=== PATIENT | male | born 1980 | race Caucasian/White ===

== ENCOUNTER 2023-04-09 14:49 | Emergency (ER) | payer OTHER, SELFPAY ==
[2023-04-09 15:12] VITALS: BP 154/87; PULSE 105; RESP 20; TEMP 37.2; O2SAT 97; BMI 40.6
--- NOTE | 2023-04-09 16:09 | ED_ITS ---
HPI - General Adult General: Chief complaint: General Medical Stated complaint: spider bite Time Seen by Provider: 04/09/23 15:19 History of Present Illness: Patient is a 42-year-old male comes to the ED with swollen tender nodule on right buttock. symptoms started this morning when he woke up. He could feel a tender golf ball sized nodule at the top right buttock. He rates the pain currently a 5 out of 10 in any pressure on area like sitting causes worsening pain. He has never had swelling or pain in this area before. He has had spider bite before that reacted like this. Denies any fevers, nausea/vomiting, bladder or bowel symptoms. Associated symptoms: Deny chest pain, dyspnea, headache(s), nausea, rash, palpitations or vomiting Review of Systems Const: Denies: fever(s), chills or fatigue Eyes: Denies: change in vision or eye discomfort ENMT: Denies: throat pain, odynophagia, nasal discharge or nasal congestion Card: Denies: chest pain, palpitations, edema, swelling of feet/ankles, dyspnea on exertion or orthopnea Resp: Denies: dyspnea, productive cough or non-productive cough GI: Denies: abdominal pain, nausea, vomiting, diarrhea, constipation or hematochezia : Denies: flank pain, difficulty urinating, dysuria or hematuria Musc: Denies: neck pain, back pain or extremity swelling Skin/Breast: Reports: new lesions (Possible abscess on right buttock); Denies: rash Neuro: Denies: headache(s), numbness in extremities or weakness in extremities [facility] ED PFSH: Medical History (Updated 04/09/23 @ 17:32 by NELIDA Sandoval) No pertinent family history Surgical History (Updated 04/09/23 @ 17:03 by NELIDA Sandoval) No pertinent past surgical history Physical Exam Const: COMMON NORMALS: patient oriented x3 HENMT: COMMON NORMALS: normocephalic HEAD & SCALP: normocephalic MOUTH: Normal oral and palatal mucosa present THROAT: posterior oropharynx normal and uvula midline Neck/C-Spine: COMMON NORMALS: supple GENERAL: Yes normal visual inspection Resp: COMMON NORMALS: normal respiratory effort, No retractions, No use of accessory muscles and clear to auscultation bilaterally AUSCULTATION: clear to auscultation bilaterally Cardio: COMMON NORMALS: regular rate, regular rhythm, S1 normal heart sound present, S2 normal heart sound present, No gallops present (Cardio), No clicks present (Cardio), No murmurs present (Cardio) and Peripheral pulses 2+ throughout RATE: regular rate RHYTHM: regular rhythm HEART SOUNDS: S1 normal heart sound present and S2 normal heart sound present PERIPHERAL PULSES: Peripheral pulses 2+ throughout GI: COMMON NORMALS: Normal to inspection, nondistended, normoactive bowel sounds present, Soft to palpation, non-tender and no masses PALPATION: Yes S oft to palpation : COMMON NORMALS: Yes no CVA tenderness BLADDER/KIDNEY EXAM: Yes no CVA tenderness Back/Pelvis: COMMON NORMALS: no CVA tenderness Neuro: COMMON NORMALS: patient oriented x3 GAIT: Yes Normal gait present Skin: NARRATIVE SKIN EXAM: Tender, erythemic, warm swollen nodule at top of right buttock near intergluteal cleft. Fluctuant and nonindurated. Findings suggestive of possible abscess or developing pilonidal cyst. Procedures Abscess I/D Site: back (Right buttock near top of intergluteal cleft) Side (if applicable): right Sedation/analgesia: none Local Anesthetic: lidocaine 1% Amount of anesthesia used (mL): 4 Technique: incised with #11 blade Amount of fluid expressed (mL): 4 (Malodorous purulent drainage) Irrigation: Yes Packing used?: none Course Vital Signs: Vital signs: Vital Signs Temperature 98.9 F 04/09/23 15:12 Pulse Rate 105 H 04/09/23 15:12 Respiratory Rate 20 H 04/09/23 15:12 Blood Pressure 154/87 04/09/23 15:12 Pulse Oximetry 97 04/09/23 15:12 Oxygen Delivery Me thod Room Air 04/09/23 15:12 [facility] - General Adult Medical Decision Making Patient is a 42-year-old male comes to the ED with swollen tender nodule on right buttock. symptoms started this morning when he woke up. He could feel a tender golf ball sized nodule at the top right buttock. He rates the pain currently a 5 out of 10 in any pressure on area like sitting causes worsening pain. He has never had swelling or pain in this area before. He has had spider bite before that reacted like this. Denies any fevers, nausea/vomiting, bladder or bowel symptoms. Vital stable. Exam of patient shows possible abscess or infected pilonidal cyst near the intergluteal cleft on superior aspect of right buttock. Lidocaine 1% was used as local and small incision made with 11 blade to drain abscess. Approximately 4 mL of malodorous purulent drainage was removed. Abscess culture and Gram stain pending. Abscess was irrigated extensor with normal saline and bandage was placed over it. Patient was given a dose of antibiotic here in the ED and was stable for discharge home. I placed an order with case management for patient be referred to general surgery for follow-up on abscess. He was sent home with a prescription for an antibiotic and told to follow-up with his PCP within the next couple days to reevaluate abscess until he sees general surgery. Patient understood and agreed with plan. Discharge Plan Discharge Patient Disposition: Home Clinical Impression: Abscess Condition: Stable Prescriptions: New clindamycin HCl 150 mg capsule 300 mg PO QID 10 Days Qty: 80 0RF Discharge Orders: Discharge ED (Routine); Ordered 04/09/23 Ordered By: Rafal Kim Referrals: Yazmin Cade PA-C [Primary Care Provider] - Discharge Diet: Regular Discharge Activity: Increase activity as tolerated Patient Instructions: Abscess (ED) Activity Restrictions/Additional Instructions: Follow-up with primary care physician in the next 2 to 3 days for reevaluation. Case management regarding in the next several days to set up an appointment with general surgery for follow-up on abscess. Take medications as prescribed. Return to the ER or your medical provider if condition worsens. Please read and understand discharge instructions. Thank you for choosing [facility] for your healthcare needs today. Please realize this is an emergency room and that we are providing you with a medical screening exam and this may not be complete and all inclusive of all the testing and or work up that you may need to determine your ailment or severity of your illness. It is very important that you follow up as instructed or that you return to the Emergency Department should you have concerns or if your condition changes or worsens in any way. Stand Alone Forms: Work/School Release Coding Level of Care Code ED High Value Associate for Kylah Gastelum
[2023-04-09] MEDS: HYDROcodone-acetaminophen 7.5-325 mg Tablet 1 TAB PO (17:19)
[2023-04-09] MEDS: clindamycin 150 mg Capsule 300 MG PO (18:21)
--- NOTE | 2023-04-10 12:18 | PC.NURSE ---
Addendum entered by Mildred Bautista RN 04/20/23 15:16: General Surgery called patient and patient declined appt. Addendum entered by Lindsay Freeman 04/16/23 11:31: Patient has [employer] insurance and is not in network with Dr. Beyer - catalytic case operator called and spoke with patient and his , to confirm where he wanted referral sent. patients stated that she wanted the referral sent to [facility] surgery. case manager faxed patients information to [facility]. case manager called to confirm that clinic received patients information. case manager was told that clinic did get patients information, and that it will be reviewed, and clinic will call patient with appointment information. Original Note: Patient seen in the ED on 04/09/23. Being referred to General surgery for right buttock abcess. [facility] sent message to call patient with an appt.
== END 2023-04-09 18:44 | disposition home or self-care (01) ==
PROVIDERS: Emergency Provider Physician Assistant; PCP Physician Assistant
DX: L02.31 Cutaneous abscess of buttock (principal)
CPT/HCPCS: 10060; 87070; 87075; 87205; 99283

== ENCOUNTER 2023-06-13 11:05 | Emergency (ER) | payer OTHER, MEDICAID, BC, SELFPAY ==
[2023-06-13 11:10] VITALS: BP 146/94; PULSE 96; RESP 16; TEMP 36.8; O2SAT 95; BMI 40.7
--- NOTE | 2023-06-13 11:16 | CTR_ITS ---
PROCEDURE INFORMATION: Exam: CT Abdomen And Pelvis With Contrast Exam date and time: 06/13/2023 12:13 PM Age: 42 years old Clinical indication: Abdominal pain; Epigastric; Additional info: Abd pain.No history of trauma or recent surgery is provided. TECHNIQUE: Imaging protocol: Computed tomography of the abdomen and pelvis with contrast. 245image(s) are provided. Radiation optimization: All CT scans at this facility use at least one of these dose optimization techniques: automated exposure control; mA and/or kV adjustment per patient size (includes targeted exams where dose is matched to clinical indication); or iterative reconstruction. Contrast material: OMNI 350; Contrast volume: 100 ml; Contrast route: INTRAVENOUS (IV); Other technique: Axial images are available with sagittal and coronal reconstruction views. Automated dose exposure control is utilized. The DLP is 1173.80. REPORTING DATA: Count of CT and Cardiac NM exams in prior 12 months: This patient has received 0 known CTs and 0 known cardiac nuclear medicine studies in the 12 months prior to the current study. COMPARISON: US gall bladder [id number] 06/10/2023 11:26 AM with no report currently available. No previous CT is currently available. RADIATION DOSE METRICS: Total DLP (mGy-cm): 1173.8 FINDINGS: Lungs: There is a 2 x 3 mm ground-glass nodular density subpleural right middle lobe series 4, image 5. There is some bandlike subsegmental atelectasis versus postinflammatory scarring most pronounced at the lingula level. No lobar consolidation is appreciated.For patients at low risk (minimal or absent history of smoking and of other known risk factors), no routine follow-up is indicated. For patients at high risk (history of smoking or of other known risk factors), consider optional CT Chest at 12 months. (Reference: Huey) Liver: There is some hepatic steatosis demonstrated overall. Gallbladder and bile ducts: The gallbladder is slightly contracted with some trace sludge appearance. The common bile duct is borderline at approximately 8 mm. No definite radiopaque obstructive calculus is currently appreciated along the expected course.Distal most, ampullary level evaluation is limited. Pancreas: No pancreatic ductal dilatation or calcification is currently appreciated. Spleen: Unremarkable. Adrenal glands: Unremarkable. Kidneys and ureters: There is homogeneous renal parenchymal enhancement with no radiopaque obstructive calculus or hydronephrosis appreciated. Stomach and bowel: Some aspects of the colon are undistended. This may also be peristaltic related.There is abundant stool present limiting mucosal detail evaluation.The bowel gas pattern appears nonobstructive. There is a small sliding-type hiatal hernia demonstrated with slight gastroesophageal fold thickening. There is some minimal chronic appearing diverticulosis. Appendix: There is an unremarkable overall appearance of the appendix demonstrated. Intraperitoneal space: No free air or free fluid collections are appreciated. Vasculature: No abdominal aortic aneurysmal dilatation or periaortic fluid is appreciated. Lymph nodes: There are subcentimeter predominant para-aortic and mesenteric lymph nodes overall present. There are some borderline groin level lymph nodes present. Urinary bladder: The bladder is incompletely fluid filled for evaluation which may exagerate the wall thickness. This can also be seen with post inflammation sequela. Reproductive: Unremarkable as visualized. Bones/joints: Osseous alignment is maintained.No displaced fracture or dislocation is appreciated.No lobar consolidation is appreciated. There is some mild disc space degeneration of the lumbar spine overall. This contributes to some neural foraminal narrowing. Soft tissues: No radiopaque foreign body or subcutaneous emphysema is appreciated. Other findings: There is some motion artifact present. CT/CT abdomen pelvis w con* [id number] IMPRESSION: 1. There is hepatomegaly with diffuse steatosis appearance overall. 2. The gallbladder is slightly contracted with some trace sludge appearance. Consider hepatobiliary profile studies. 3. No fluid collections or acute inflammatory stranding changes are appreciated. REFERENCES: Huey Copeland, et al. Guidelines for Management of Incidental Pulmonary Nodules Detected on CT Images: From the Fleischner Society 2017. Radiology. 2017;284(1):228-243.
--- NOTE | 2023-06-13 11:17 | ED_ITS ---
HPI - Abdominal Pain General: Chief Complaint: Abdominal Pain Stated Complaint: gallbladder issues Time Seen by Provider: 06/13/23 11:16 History of Present Illness: 42-year-old male presents emergency room for complaints of diarrhea and abdominal pain for the past few days. Was initially seen and evaluated at a different hospital few days ago. At [facility] patient had extensive work-up done including trazodone and labs. The ultrasound did show some sludge patient was directly admitted to this hospital. For transportation patient left AGAINST MEDICAL ADVICE. Yesterday patient was seen and evaluated by primary physician and was told to come to the emergency room. She presents emergency room today with vague complaint of diarrhea and abdominal pain after eating. Denies any nausea, vomiting, vomiting blood or coughing up blood. Associated Symptoms: Reports diarrhea and nausea; Denies belching, bloating, change in bowel habits, change in stool character, coffee ground emesis, constipation, GI cramping, excessive flatus, hematochezia, hematemesis, melena and vomiting Review of Systems General: Reports: 10 or more systems reviewed and unremarkable except in HPI and below GI: Reports: abdominal pain, nausea and diarrhea; Denies: vomiting, hematemesis, coffee ground emesis, dysphagia, early satiety, c onstipation, bloating, GI cramping, belching, excessive flatus, change in bowel habits, pain on defecation, rectal itching, change in stool character, hematochezia, melena or mucus in stool [facility] ED PFSH: Medical History No pertinent family history Surgical History No pertinent past surgical history Physical Exam Const: COMMON NORMALS: no acute distress, average body habitus, patient oriented x3, no limitations, healthy appearing, alert and well nourished Chest: COMMONS NORMALS: normal inspection of the chest, normal palpation of entire chest wall, normal inspection of the breasts and normal palpation of the breasts Breast/axilla inspection: Yes normal inspection of the breasts BREAST/AXILLA PALPATION: Yes normal palpation of the breasts Resp: COMMON NORMALS: normal respiratory effort, No retractions, No use of accessory muscles, clear to auscultation bilaterally and percussion normal AUSCULTATION: clear to auscultation bilaterally PERCUSSION: percussion normal GI: COMMON NORMALS: Normal to inspection, nondistended, normoactive bowel sounds present, Soft to palpation, non-tender, No hepatosplenomegaly present, no masses and no bruits PALPATION: Yes Soft to palpation and Yes No hepatosplenomegaly present : COMMON NORMALS: Yes no CVA tenderness BLADDER/KIDNEY EXAM: Yes no CVA tenderness Back/Pelvis: COMMON NORMALS: no CVA tenderness, thoracic and lumbar spine normal to inspection, no thoracic nor lumbar tenderness, thoraco-lumbar ROM normal and straight leg raise negative bilaterally Extremity: COMMON NORMALS: normal to inspection, full ROM, capillary refill normal, no joint enlargement, no clubbing, cyanosis or edema, no calf tenderness and no pedal edema Neuro: COMMON NORMALS: patient oriented x3 SENSORIUM/ORIENTATION: Yes alert Course Consultations: Consultation #1: at 12 20 pm i discussed pt with Dr montiel. i told him about the us findings and labs including the WBC . he recommended discharge with oral antibiotic and outpatient follow -up Vital Signs: Vital signs: Vital Signs Temperature 98.2 F 06/13/23 11:10 Pulse Rate 93 06/13/23 11:56 Respiratory Rate 14 06/13/23 11:56 Blood Pressure 159/88 06/13/23 11:56 Pulse Oximetry 95 06/13/23 11:56 Oxygen Delivery Me thod Room Air 06/13/23 11:56 MDM - Abdominal Pain Medical Decision Making Patient made comfortable emergency room. Records from [facility] requested and obtained. Thoroughly reviewed the ultrasound and the blood work. Because the new labs and CT scan finding with the patient. I spoke with Dr. Webber the surgeon. Recommended Augmentin and outpatient follow-up. Patient and reassured. Differential Diagnosis Likely abdominal pain, acute appendicitis, calculus of kidney, constipation, diverticulitis, gastroenteritis, pancreatitis and small bowel obstruction Lab Data 06/13/23 11:47 06/13/23 11:47 Labs/Radiology: Laboratory Results WBC 9.0 10^3/uL (4.0-10.0) 06/13/23 11:47 RBC 4.81 10^6/uL (4.1-5.3) 06/13/23 11:47 Hgb 14.4 g/dL (11.7-16.6) 06/13/23 11:47 Hct 42.5 % (42.0-52.0) 06/13/23 11:47 MCV 88.4 fl (80-94) 06/13/23 11:47 MCH 29.9 pg (28.0-34.0) 06/13/23 11:47 MCHC 33.9 g/dL (30.0-36.0) 06/13/23 11:47 RDW 13.3 % (12.1-15.1) 06/13/23 11:47 Plt Count 226 10^3/cmm (130-400) 06/13/23 11:47 MPV 11.2 fL (7.4-10.4) H 06/13/23 11:47 Neut % (Auto) 53.8 % 06/13/23 11:47 Lymph % (Auto) 36.6 % 06/13/23 11:47 Pitt % (Auto) 6.0 % 06/13/23 11:47 Eos % (Auto) 2.7 % 06/13/23 11:47 Baso % (Auto) 0.6 % 06/13/23 11:47 Neut # (Auto) 4.85 10^3/uL (1.8-7.7) 06/13/23 11:47 Lymph # (Auto) 3.3 10^3/uL (0.8-4.8) 06/13/23 11:47 Pitt # (Auto) 0.5 10^3/uL (0.2-0.9) 06/13/23 11:47 Eos # (Auto) 0.2 10^3/uL (0.0-0.8) 06/13/23 11:47 Baso # (Auto) 0.1 10^3/uL (0.0-0.1) 06/13/23 11:47 Nucleated RBC % (auto) 0 % 06/13/23 11:47 Nucleated RBCs # 0.0 /100WBC 06/13/23 11:47 Sodium 139 mmol/L (136-145) 06/13/23 11:47 Potassium 3.7 mmol/L (3.5-5.1) 06/13/23 11:47 Chloride 104 mmol/L (98-107) 06/13/23 11:47 Carbon Dioxide 25 mmol/L (22-29) 06/13/23 11:47 Anion Gap 13.7 (5-19) 06/13/23 11:47 BUN 19 mg/dL (6-20) 06/13/23 11:47 Creatinine 1.2 mg/dL (0.7-1.2) 06/13/23 11:47 GFR Calculation 67.1 mL/min (90-130) L 06/13/23 11:47 Glucose 113 mg/dL (65-115) 06/13/23 11:47 Calculated Osmolality 291 mOsm/kg (285-295) 06/13/23 11:47 Calcium 9.0 mg/dL (8.5-10.5) 06/13/23 11:47 Total Bilirubin 0.3 mg/dL (0.15-1.2) 06/13/23 11:47 AST 26 U/L (0-40) 06/13/23 11:47 ALT 40 U/L (0-41) 06/13/23 11:47 Alkaline Phosphatase 69 U/L (40-130) 06/13/23 11:47 Total Protein 7.1 g/dL (6.6-8.7) 06/13/23 11:47 Albumin 4.0 g/dL (3.5-5.2) 06/13/23 11:47 Globulin 3.1 g/dL (1.3-4.6) 06/13/23 11:47 Lipase 34 U/L (13-60) 06/13/23 11:47 Discharge Plan Discharge Condition: Stable Prescriptions: New amoxicillin-pot clavulanate [Augmentin] 500-125 mg tablet 1 tab PO BID Qty: 20 0RF promethazine 25 mg tablet 25 mg PO Q6H PRN (Reason: nausea and vomiting) Qty: 14 0RF No Action ibuprofen 200 mg Tablet 200 mg PO TID Referrals: Jaord Peace FNP [Primary Care Provider] - Coding Level of Care Code ED Garment Sewer Hand for Chg Oriana
[2023-06-13 11:54] LABS: Basophils # 0.1 10^3/uL (0.0-0.1); Basophils % 0.6 %; Eosinophils # 0.2 10^3/uL (0.0-0.8); Eosinophils % 2.7 %; Hematocrit 42.5 % (42.0-52.0); Hemoglobin 14.4 g/dL (11.7-16.6); Lymphocytes # 3.3 10^3/uL (0.8-4.8); Lymphocytes % 36.6 %; Mean Corpuscular HGB Conc 33.9 g/dL (30.0-36.0); Mean Corpuscular Hemoglobin 29.9 pg (28.0-34.0); Mean Corpuscular Volume 88.4 fl (80-94); Mean Platelet Volume 11.2 fL (7.4-10.4); Monocytes # 0.5 10^3/uL (0.2-0.9); Neutrophils # 4.85 10^3/uL (1.8-7.7); Neutrophils % 53.8 %; Nucleated Red Blood Cells % 0 %; Platelet Count 226 10^3/cmm (130-400); Red Blood Count 4.81 10^6/uL (4.1-5.3); Red Cell Distribution Width 13.3 % (12.1-15.1)
[2023-06-13 11:56] VITALS: BP 159/88; PULSE 93; RESP 14; O2SAT 95
[2023-06-13 12:16] LABS: Alanine Aminotransferase 40 U/L (0-41); Alkaline Phosphatase 69 U/L (40-130); Anion Gap 13.7 (5-19); Aspartate Amino Transferase 26 U/L (0-40); Blood Urea Nitrogen 19 mg/dL (6-20); Carbon Dioxide 25 mmol/L (22-29); Chloride 104 mmol/L (98-107); Globulin 3.1 g/dL (1.3-4.6); Glomerular Filtration Rate 67.1 mL/min (90-130); Glucose 113 mg/dL (65-115); Lipase 34 U/L (13-60); Osmolality Calculated 291 mOsm/kg (285-295); Potassium 3.7 mmol/L (3.5-5.1); Sodium 139 mmol/L (136-145); Total Bilirubin 0.3 mg/dL (0.15-1.2); Total Protein 7.1 g/dL (6.6-8.7)
[2023-06-13] MEDS: iohexol 350 mg/mL 500 mL Btl (per mL) IV (12:17)
[2023-06-13 13:00] VITALS: BP 163/86; PULSE 86; O2SAT 96
[2023-06-13 13:30] VITALS: BP 154/91; PULSE 83; O2SAT 97
== END 2023-06-13 13:31 | disposition home or self-care (01) ==
PROVIDERS: Emergency Provider Family Medicine; PCP Nurse Practitioner Family
DX: R10.9 Unspecified abdominal pain (principal); R19.7 Diarrhea, unspecified
CPT/HCPCS: 74177; 80053; 83690; 85025; 99285; Q9967

== ENCOUNTER 2023-07-07 08:16 | Outpatient (CLI) | payer BC, MEDICAID, SELFPAY ==
--- NOTE | 2023-07-07 08:15 | USR_ITS ---
PROCEDURE INFORMATION: Exam: US Abdomen; Limited Exam date and time: 07/07/2023 8:28 AM Age: 42 years old Clinical indication: Abdominal pain; Localized; Right upper quadrant (ruq); Additional info: Right upper quadrant pain TECHNIQUE: Imaging protocol: Real time ultrasound of the abdomen with image documentation. Limited exam focused on the region of clinical interest. COMPARISON: CT abdomen pelvis w con* [id number] 06/13/2023 12:13 PM FINDINGS: Liver: Fatty infiltration liver. Gallbladder: No gallstones or ductal dilatation Pancreas: No gross abnormality within the pancreas Right kidney: Right kidney appears unremarkable. US/US gall bladder [id number] IMPRESSION: Fatty infiltration of the liver. No gallstones or ductal dilatation.
== END 2023-07-07 08:17 | disposition home or self-care (01) ==
PROVIDERS: PCP Nurse Practitioner Family; Visit Provider Surgery
DX: R10.11 Right upper quadrant pain (principal); K76.0 Fatty (change of) liver, not elsewhere classified
CPT/HCPCS: 76705

== ENCOUNTER 2023-07-15 12:40 | Emergency (ER) | payer BC, MEDICAID, SELFPAY ==
[2023-07-15 12:51] VITALS: BP 129/84; PULSE 91; RESP 17; O2SAT 96; BMI 41.3
--- NOTE | 2023-07-15 14:21 | ED_ITS ---
HPI - Back Pain/Injury General: Chief Complaint: Back Pain/Injury Stated Complaint: abd pain Time Seen by Provider: 07/15/23 13:38 Source: patient Mode of arrival: ambulatory Limitations: no limitations History of Present Illness: Patient is a 42-year-old male who presents to the emergency department complaining of acute onset back pain onset this morning. Patient says he was scooting back into a chair, when he notes sudden onset left lower back pain that has been constantly present since onset and feels like a sharp pain. Reports similar pains previously. He denies any recent heavy lifting or strenuous activity. The pain is currently a 9/10 when he is moving, but rest makes the pain lupillo. All movements seem to worsen his pain, but is specifically worse with rotation at the hips. He denies any related symptoms, including leg pain, bowel or bladder incontinence, fever, or distal neurological changes. He has tried heat and states that this did help a little. Denies urinary symptoms. MD elicited complaint: back pain Pertinent past history: prior back pain Onset (ago): hour(s) Timing: constant Severity: severe Pain scale (0-10): 9 Similar Symptoms Previously: Yes Quality: sharp and stabbing Location: left lower back Radiation: none Exacerbating factors: movement Relieving factors: other (Heat) Context: other (while scooting back in a chair) Associated symptoms: Reports no associated symptoms; Deny abdominal pain, chills, dysuria, fever(s), hematuria, nausea, syncope or vomiting Treatments prior to arrival: heat therapy and NSAIDS Work related injury: No Review of Systems Const: Denies: fever(s) or chills Eyes: Denies: change in vision or blurry vision Card: Denies: chest pain, palpitations, irregular heart rhythm, lightheadedness, syncope or dyspnea on exertion Resp: Denies: dyspnea, productive cough or pain on inspiration GI: Denies: abdominal pain, nausea, vomiting, heartburn or diarrhea : Denies: flank pain, difficulty urinating, dysuria, urinary hesitancy or hematuria Musc: Reports: back pain; Denies: neck pain, extremity pain, extremity swelling, joint pain or muscle weakness Skin/Breast: Denies: rash Neuro: Denies: headache(s), numbness in extremities, weakness in extremities or sensory changes PFS ED PFSH: Medical History No pertinent family history Surgical History No pertinent past surgical history Family History Father Intestinal infection Mother Cancer small cell lung cancer Social History Smoking and tobacco status: never smoked Alcohol intake: never Physical Exam Const: COMMON NORMALS: no acute distress, patient oriented x3, no limitations, alert and well nourished NUTRITIONAL APPEARANCE: obese morbidly obese ORIENTATION/CONSCIOUSNESS: Yes awake, Yes oriented to person, Yes oriented to place and Yes oriented to time HENMT: COMMON NORMALS: normocephalic and atraumatic HEAD & SCALP: normal to inspection, normocephalic and atraumatic Resp: COMMON NORMALS: normal respiratory effort and clear to auscultation bilaterally AUSCULTATION: clear to auscultation bilaterally Cardio: COMMON NORMALS: regular rate and regular rhythm RATE: regular rate RHYTHM: regular rhythm GI: COMMON NORMALS: Normal to inspection, nondistended, normoactive bowel sounds present, Soft to palpation, non-tender, No hepatosplenomegaly present and no masses PALPATION: Yes Soft to palpation and Yes No hepatosplenomegaly present : COMMON NORMALS: Yes no CVA tenderness BLADDER/KIDNEY EXAM: Yes no CVA tenderness Back/Pelvis: COMMON NORMALS: no CVA tenderness, thoracic and lumbar spine normal to inspection, thoraco-lumbar ROM normal and straight leg raise negative bilaterally THORACIC SPINE/UPPER BACK: Yes normal to inspection, No thoracic spinal tenderness, No paraspinal muscle tenderness and No paraspinal muscle spasm LUMBAR SPINE/LOWER BACK: Yes lumbar ROM normal, Yes pain with ROM, No lumbar spinal tenderness, Yes paraspinal muscle tenderness Lumbar paraspinal muscle tenderness: left, No paraspinal muscle spasm and Yes straight leg raise negative bilaterally PELVIS: Yes buttocks normal and No sciatic notch tenderness SACROILIAC JOINTS: Yes SI joints normal SACRUM: no tenderness COCCYX: no tenderness Extremity: COMMON NORMALS: normal to inspection, full ROM, no clubbing, cyanosis or edema, no calf tenderness and no pedal edema GENERAL: Yes normal exam except as noted Neuro: COMMON NORMALS: patient oriented x3, moves all extremities, no focal motor deficits and no sensory deficits noted SENSORIUM/ORIENTATION: Yes alert, Yes oriented to person, Yes oriented to place and Yes oriented to time Skin: COMMON NORMALS: no rashes or lesions noted GENERAL SKIN EXAM: no rashes or lesions noted Course Vital Signs: Vital signs: Vital Signs Pulse Rate 91 07/15/23 12:51 Respiratory Rate 17 07/15/23 12:51 Blood Pressure 129/84 07/15/23 12:51 Pulse Oximetry 96 07/15/23 12:51 Oxygen Delivery Me thod Room Air 07/15/23 12:51 MDM - Back Pain/Injury Medical Decision Making Patient stating he feels better after IM medications given here. No red flag symptoms on history or physical examination. Patient states he feels comfortable to go home. He will be placed on muscle relaxers and encouraged to take [id number] anti-inflammatories. He may also try ice/heat as needed. Follow-up with his primary care provider in 1 to 2 weeks if symptoms do not seem to be improving. Discharge Plan Discharge Patient Disposition: Home Clinical Impression: Strain of lumbar region Condition: Stable Prescriptions: New cyclobenzaprine 10 mg tablet 10 mg PO TID Qty: 14 0RF No Action ibuprofen 200 mg Tablet 200 mg PO TID Discharge Orders: Discharge ED (Routine); Ordered 07/15/23 Ordered By: Denia Choudhary Referrals: Jarod Peace FNP [Primary Care Provider] - Patient Instructions: Low Back Strain (ED) Activity Restrictions/Additional Instructions: Please take prescribed cyclobenzaprine as needed. You may also take [id number] anti-inflammatories or Tylenol as needed for pain. Please ref rain from any strenuous activity or heavy lifting for the next 5 to 7 days. Gentle range of motion exercises as tolerated. Return to the emergency department for reevaluation if you develop any shooting leg pain, bowel/bladder incontinence, or any new numbness weakness or tingling. You may follow-up with your primary care provider as needed. 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
[2023-07-15] MEDS: orphenadrine 30 mg/mL Inj 2 mL 60 MG IM (14:29)
[2023-07-15] MEDS: dexamethasone 10 mg/mL INJ 8 MG IM (14:29)
[2023-07-15] MEDS: ketorolac 60 mg/2 mL INJ IM (14:30)
== END 2023-07-15 16:04 | disposition home or self-care (01) ==
PROVIDERS: Emergency Provider Physician Assistant; PCP Nurse Practitioner Family
DX: S39.012A Strain of muscle, fascia and tendon of lower back, initial encounter (principal); X58.XXXA Exposure to other specified factors, initial encounter
CPT/HCPCS: 96372; 99284; J1100; J1885; J2360

== ENCOUNTER 2023-10-31 13:10 | Emergency (ER) | payer MEDICAID, SELFPAY ==
[2023-10-31 13:55] VITALS: BP 146/88; PULSE 94; RESP 18; TEMP 36.8; O2SAT 96; BMI 39.9
[2023-10-31 14:08] LABS: Basophils % 0.3 %; Eosinophils # 0.2 10^3/uL (0.0-0.8); Eosinophils % 2.3 %; Hematocrit 45.8 % (37-53); Lymphocytes # 2.7 10^3/uL (0.8-4.8); Lymphocytes % 26.9 %; Mean Corpuscular HGB Conc 32.5 g/dL (30-55); Mean Corpuscular Hemoglobin 29.7 pg (27-33); Mean Corpuscular Volume 91.2 fl (82-101); Mean Platelet Volume 11.1 fL (7.4-10.4); Monocytes # 0.6 10^3/uL (0.2-0.9); Monocytes % 6.2 %; Neutrophils # 6.42 10^3/uL (1.8-7.7); Nucleated Red Blood Cells % 0 %; Platelet Count 264 10^3/cmm (157-399); Red Blood Count 5.02 10^6/uL (3.85-5.65); Red Cell Distribution Width 13.2 % (12.1-15.1); White Blood Count 10.03 10^3/uL (3.29-11.43)
[2023-10-31 14:29] LABS: Alanine Aminotransferase 29 U/L (0-41); Alkaline Phosphatase 75 U/L (40-130); Anion Gap 15.1 (5-19); Aspartate Amino Transferase 21 U/L (0-40); Blood Urea Nitrogen 23 mg/dL (6-20); Calcium 9.4 mg/dL (8.5-10.5); Carbon Dioxide 25 mmol/L (22-29); Chloride 104 mmol/L (98-107); Globulin 3.3 g/dL (1.3-4.6); Glomerular Filtration Rate 66.7 mL/min (90-130); Glucose 117 mg/dL (65-115); Lipase 33 U/L (13-60); Osmolality Calculated 295 mOsm/kg (285-295); Potassium 4.1 mmol/L (3.5-5.1); Sodium 140 mmol/L (136-145); Total Bilirubin 0.3 mg/dL (0.15-1.2); Total Protein 7.3 g/dL (6.6-8.7)
[2023-10-31 15:05] VITALS: BP 140/98; PULSE 97; TEMP 37.2; O2SAT 92
--- NOTE | 2023-10-31 20:15 | ED_ITS ---
HPI - General Adult 2 General: Chief complaint: General Medical Stated complaint: N/V/D, Blood in stool, body aches Time Seen by Provider: 10/31/23 20:13 History of Present Illness: 43-year-old male patient comes in today with persistent diarrhea for several months to years. Patient reports the diarrhea has worsened over the last couple of weeks. Patient was diagnosed with gallbladder sludge in May and had been consulted with a surgeon for removal of his gallbladder but was trying some apple cider vinegar home therapy. Patient reported some improvement of his diarrhea with the apple cider vinegar had recently stopped and now the diarrhea has gotten worse again. Patient appears nontoxic. Patient reports some incontinence due to the watery stools. Patient also has noted some streaks of blood in his stool. Patient appears nontoxic. Patient appears in no pain. Associated symptoms: Deny chest pain, dyspnea, rash or vomiting Review of Systems 2 General: Reports: 10 or more systems reviewed and unremarkable except in HPI and below Const: Denies: fever(s) Card: Denies: chest pain Resp: Denies: dyspnea GI: Reports: diarrhea; Denies: vomiting : Denies: difficulty urinating Musc: Denies: back pain Skin/Breast: Denies: rash PFSH ED 2 PFSH: Medical History No pertinent family history Surgical History No pertinent past surgical history Family History Father Intestinal infection Mother Cancer small cell lung cancer Social History Smoking and tobacco/nicotine status: never used tobacco/nicotine Alcohol intake: never Physical Exam 2 Const: COMMON NORMALS: alert HENMT: COMMON NORMALS: normocephalic HEAD & SCALP: normocephalic MOUTH: Normal oral and palatal mucosa present Neck/C-Spine: COMMON NORMALS: full ROM Resp: COMMON NORMALS: normal respiratory effort and clear to auscultation bilaterally AUSCULTATION: clear to auscultation bilaterally Cardio: COMMON NORMALS: regular rate and regular rhythm RATE: regular rate RHYTHM: regular rhythm GI: COMMON NORMALS: Soft to palpation AUSCULTATION: Yes normoactive bowel sounds PALPATION: Yes Soft to palpation and No Tenderness to palpation present (GI) RECTAL EXAM: Yes visual inspection normal and Yes normal sphincter tone Extremity: COMMON NORMALS: normal to inspection Neuro: SENSORIUM/ORIENTATION: Yes alert Skin: COMMON NORMALS: no rashes or lesions noted GENERAL SKIN EXAM: no rashes or lesions noted Course 2 Vital Signs: Vital signs: Vital Signs Temperature 99.0 F 10/31/23 15:05 Pulse Rate 97 10/31/23 15:05 Respiratory Rate 18 10/31/23 13:55 Blood Pressure 140/98 10/31/23 15:05 Pulse Oximetry 92 10/31/23 15:05 Oxygen Delivery Me thod Room Air 10/31/23 13:55 MDM - General Adult Medical Decision Making 43-year-old male patient comes in today for complaints of persistent diarrhea stools and some incontinence due to diarrhea. Patient reports worsening symptoms over the last 2 weeks. Patient has had chronic diarrhea for several months until last year. On exam abdomen soft nontender. Vital signs are normal. Rectal exam was unremarkable. Differential diagnosis includes not limited to functional diarrhea, enterocolitis, gallbladder disease, pancreatitis, malingering, malabsorption disorder. CBC and CMP was unremarkable. Patient does have a history of a recent CT scan done in May that showed no abnormalities except sludge on the gallbladder. The diarrhea may be related to patient's gallbladder disease. However patient reports that diarrhea persisted before diagnosis of gallbladder illness. Patient should have a colonoscopy for further evaluation also due to the blood in his stool along with the diarrhea. Recommend follow-up with surgeon for further evaluation and treatment. Case management was requested to assist with this plan. Patient understood and agreed to plan. Patient was stable and discharged home. Patient was given a dose of Lomotil 2 tablets at night. And was started on some dicyclomine to see if it would help improved control of his diarrhea. Lab Data 10/31/23 13:54 10/31/23 13:54 Laboratory Results WBC 10.03 10^3/uL (3.29-11.43) 10/31/23 13:54 RBC 5.02 10^6/uL (3.85-5.65) 10/31/23 13:54 Hgb 14.90 g/dL (11.27-16.99) 10/31/23 13:54 Hct 45.8 % (37-53) 10/31/23 13:54 MCV 91.2 fl (82-101) 10/31/23 13:54 MCH 29.7 pg (27-33) 10/31/23 13:54 MCHC 32.5 g/dL (30-55) 10/31/23 13:54 RDW 13.2 % (12.1-15.1) 10/31/23 13:54 Plt Count 264 10^3/cmm (157-399) 10/31/23 13:54 MPV 11.1 fL (7.4-10.4) H 10/31/23 13:54 Neut % (Auto) 64.0 % 10/31/23 13:54 Lymph % (Auto) 26.9 % 10/31/23 13:54 [place] % (Auto) 6.2 % 10/31/23 13:54 Eos % (Auto) 2.3 % 10/31/23 13:54 Baso % (Auto) 0.3 % 10/31/23 13:54 Neut # (Auto) 6.42 10^3/uL (1.8-7.7) 10/31/23 13:54 Lymph # (Auto) 2.7 10^3/uL (0.8-4.8) 10/31/23 13:54 [place] # (Auto) 0.6 10^3/uL (0.2-0.9) 10/31/23 13:54 Eos # (Auto) 0.2 10^3/uL (0.0-0.8) 10/31/23 13:54 Baso # (Auto) 0.0 10^3/uL (0.0-0.1) 10/31/23 13:54 Nucleated RBC % (auto) 0 % 10/31/23 13:54 Nucleated RBCs # 0.0 /100WBC 10/31/23 13:54 Sodium 140 mmol/L (136-145) 10/31/23 13:54 Potassium 4.1 mmol/L (3.5-5.1) 10/31/23 13:54 Chloride 104 mmol/L (98-107) 10/31/23 13:54 Carbon Dioxide 25 mmol/L (22-29) 10/31/23 13:54 Anion Gap 15.1 (5-19) 10/31/23 13:54 BUN 23 mg/dL (6-20) H 10/31/23 13:54 Creatinine 1.2 mg/dL (0.7-1.2) 10/31/23 13:54 GFR Calculation 66.7 mL/min (90-130) L 10/31/23 13:54 Glucose 117 mg/dL (65-115) H 10/31/23 13:54 Calculated Osmolality 295 mOsm/kg (285-295) 10/31/23 13:54 Calcium 9.4 mg/dL (8.5-10.5) 10/31/23 13:54 Total Bilirubin 0.3 mg/dL (0.15-1.2) 10/31/23 13:54 AST 21 U/L (0-40) 10/31/23 13:54 ALT 29 U/L (0-41) 10/31/23 13:54 Alkaline Phosphatase 75 U/L (40-130) 10/31/23 13:54 Total Protein 7.3 g/dL (6.6-8.7) 10/31/23 13:54 Albumin 4.0 g/dL (3.5-5.2) 10/31/23 13:54 Globulin 3.3 g/dL (1.3-4.6) 10/31/23 13:54 Lipase 33 U/L (13-60) 10/31/23 13:54 No radiology studies performed this visit Discharge Plan Discharge Patient Disposition: Home Clinical Impression: Sludge in gallbladder Diarrhea Qualifiers: Diarrhea type: unspecified type Qualified Code(s): R19.7 - Diarrhea, unspecified Condition: Stable Prescriptions: New dicyclomine 20 mg tablet 20 mg PO QID Qty: 40 0RF No Action prednisone 20 mg tablet 60 mg PO DAILY 5 Days Qty: 15 0RF ibuprofen 600 mg tablet 600 mg PO Q8H PRN (Reason: pain) Qty: 60 0RF methocarbamol 750 mg tablet 750 mg PO TID Qty: 30 0RF ibuprofen 200 mg Tablet 200 mg PO TID cyclobenzaprine 10 mg tablet 10 mg PO TID Qty: 14 0RF Discharge Orders: Discharge ED (Routine); Ordered 10/31/23 Ordered By: Clarence Robbins Referrals: Otis Orta MD [Physician] - Jarod Peace FNP [Primary Care Provider] - Discharge Diet: Low Fat Discharge Activity: Resume usual activity Patient Instructions: Biliary Colic (ED), Low Fat Diet (ED) Activity Restrictions/Additional Instructions: Home and rest. Use medication as directed for diarrhea. Take dicyclomine 4 times a day prior to each meal and at bedtime to help slow the transit of food through your bowel system. Use Imodium [id number] otherwise for diarrhea. Drink plenty of water. Use an electrolyte solution. Follow-up with surgeon for further evaluation for colonoscopy and/or possible removal of gallbladder due to history of gallbladder sludge. Case management will contact you regarding follow-up appointment with surgeon. Return to ER for new concerns or worsening symptoms such as high fever, increasing abdominal pain, or new concerns. 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
[2023-10-31] MEDS: diphenoxylate/atropine Tablet 2 TAB PO (20:39)
--- NOTE | 2023-11-02 08:20 | DCPLANNER ---
Message was sent to general surgery on 11/02/23 at 0822. Clinic to contact patient.
== END 2023-10-31 20:47 | disposition home or self-care (01) ==
PROVIDERS: Emergency Provider Nurse Practitioner Family; PCP Nurse Practitioner Family
DX: R19.7 Diarrhea, unspecified (principal); K82.9 Disease of gallbladder, unspecified
CPT/HCPCS: 36415; 80053; 83690; 85025; 99283

== ENCOUNTER → 2025-02-02 10:24 | Outpatient (BNVA) | payer MEDICAID, SELFPAY | PROVIDERS: PCP Nurse Practitioner Family; Referring Provider Surgery; Visit Provider Surgery | DX: K52.9 Noninfective gastroenteritis and colitis, unspecified (principal); R10.9 Unspecified abdominal pain; G89.29 Other chronic pain | CPT/HCPCS: 82274; 83630; 83993; 87177; 87209 ==